=== PATIENT | female | born 1995 | race Caucasian/White ===

== ENCOUNTER → 2017-10-27 09:15 | Outpatient (CLI) | payer OTHER, SELFPAY ==
--- NOTE | 2017-10-27 09:27 | MRI_ITS ---
STUDY: MRI BRAIN WITHOUT CONTRAST REASON FOR EXAM: Female, 22 years old. Pineal cyst TECHNIQUE: Standardized multiplanar fat and water weighted pulse sequences were obtained. COMPARISON: March 2016 FINDINGS: Normal size of the ventricles and extra-axial spaces for the patient's age. Normal white matter tracts of the supratentorial brain. Normal bilateral basal ganglia. Normal thalami. There is no extra-axial fluid accumulation. Normal flow voids within the major intracranial circulation suggesting patency by spin echo criteria. Normal sella turcica, pituitary gland, infundibular stalk, optic chiasm and hypothalamus. Normal tectal plate. There is a small nonobstructing pineal cyst measuring approximately 7 to 8 mm in size not changed since previous study Normal midbrain, red and medulla. Normal cerebellum. Normal basal cisterns. Normal bilateral temporal bones. Normal bilateral internal auditory canals. No demonstrated orbital abnormality, within the constraints of a routine brain study. Normal visualized paranasal sinuses. Normal calvarium and skull base. Normal visualized soft tissue structures. Normal visualized upper cervical spine. MRI/Brain without Contrast IMPRESSION: Stable appearance to pineal cyst which is of no clinical significance. Otherwise normal unenhanced MRI of the brain Electronically Signed: Hunter Terrazas MD at 18:43 EDT , Service support ,
== END ==
DX: E34.8 Other specified endocrine disorders (principal)
CPT/HCPCS: 70551

== ENCOUNTER → 2018-01-19 09:40 | Outpatient (CLI) | payer OTHER, SELFPAY ==
[2018-01-19 09:44] VITALS: BMI 32.9
[2018-01-24 10:05] LABS: HPV Reflexed? NOT INDICATED
--- OUTSIDE RECORDS SUMMARY | 2018-03-07 23:48 | XMS RPT_ITS ---
:1995 Author Organization OHIP Care Team Providers Name Role Phone April Zhang Attending Unavailable Jamari Maria Referring Unavailable April Zhang Attending Unavailable April Zhang Referring Unavailable Violette Coto Primary Care Unavailable Violette Coto Attending Unavailable Violette Coto Referring Unavailable Violette Coto Primary Care Unavailable PROBLEMS PROBLEMS DATE TYPE CONDITION / CODE ATTENDING STATUS SOURCE 01/20/2018 Unknown Z12.4 - Encounter Johanny Zhang [place] for screening for [facility] malignant neoplasm [facility] of cervix / Repository Z12.4(ICD-10) 01/19/2018 Unknown Z01.419 - Encounter Johanny Zhang [place] for gynecological [facility] (general) (routine) Repository without abnormal findings / Z01.419(ICD-10) 11/01/2017 Unknown E34.8 - Other Violette Coto Active Hollie specified endocrine [facility] disorders / Hospital E34.8(ICD-10) Repository PROCEDURES PROCEDURES No Procedure Records FoundRESULTS RESULTS 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 Is patient in pain?: No Allergies ibuprofen Adverse Reaction (Mild, Verified 01/19/18 09:46) Vomiting Medications citalopram 40 mg tablet 40 mg PO DAILY #30 tab 01/19/18 [Rx Confirmed 01/19/18] norgestimate 0.25 mg-ethinyl estradiol 35 mcg tablet 1 tab PO QDAY #28 tab 01/19/18 [Rx Confirmed 01/19/18] Is last menstrual period known: Yes Last Menstral Period: 01/02/18 Post menopausal: No Patient : No : No PFSH Medical History Anxiety (Acute) Surgical History Numerous skin moles (Acute) [place] teeth extracted (Acute) Family History Grandfather Myocardial infarction Grandmother Breast cancer Social History number of children: 0 current occupational status: employed current occupation: [employer], [place] Smoking Status: Never smoker alcohol intake: current alcohol intake frequency: holidays/special occasions only substance use type: marijuana seatbelt use: always do you feel safe at home: Yes Pregancy History 0 Elective abortions Hx Para Spontaneous abortions HPI ANNUAL: Details: ILSA RUIZ is a 22 year old who presents for annual exam. 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 Last PAP: never Female Reproductive History Last Menstral Period: 01/02/18 Cycle Length: 21-35 Bleeding Duration: 5 Control Method: ocp Questions: Metorrhagia: No, Sexually active: Yes (not present), Dyspareunia: No, PCB: No ROS Const Constitutional: Reports as per HPI; denies poor appetite, fatigue, increased appetite, weight gain or weight loss Cardio Card: Denies chest pain Resp Resp: Denies dyspnea or cough GI GI: Reports as per HPI; denies bloating, abdominal pain, constipation, vomiting or nausea : Reports as per HPI and other; denies blood in urine, vaginal odor, vaginal itching, vaginal dryness, vaginal discharge, urinary urgency, urinary incontinence, urinary frequency, pelvic pain, painful urination, difficulty urinating, prolapse symptoms or nipple discharge Skin Skin/Breast: Reports breast lump (chronic right side); denies breast pain, breast skin changes, nipple discharge or changing lesions Exam Const General: cooperative, healthy appearing, comfortable, no acute distress, well developed, well groomed HENIA Head: normal to inspection, normocephalic Ears: hearing grossly normal bilaterally, external ears normal Nose: external nose normal Face and sinus: normal facial exam Neck Neck: normal visual inspection, full ROM, no lymphadenopathy Thyroid: thyroid normal Chest Chest palpation AND inspection: normal inspection of the chest Breast inspection: normal inspection of the breasts, normal inspection of the axillae Breast palpation: normal palpation of the breasts, normal palpation of the axillae, no axillary lymphadenopathy Resp Effort AND Inspection: normal respiratory effort GI Inspection: normal to inspection, non-distended Palpation: no guarding, soft, no hepatosplenomegaly General: bladder normal to palpation External Female Exam: normal external appearance, normal appearance of the urethra, no lesions Urethra: normal appearance of the urethra, normal palpation Speculum Exam - Vagina: normal appearance of the vagina, normal vaginal discharge Speculum Exam - Cervix: normal appearance of the cervix, no cervical discharge, no lesions, nontender Bimanual Exam- Vagina AND Uterus: No cervical tenderness, normal bimanual exam, uterine size normal, bladder normal to palpation, uterine mobility normal, uterine consistency normal, uterus non-tender, no cervical motion tenderness Bimanual Exam- Adnexa, other: normal adnexae, no adnexal masses, adnexae non-tender Skin General: no rashes or lesions noted Neuro General: alert, moves all extremities, no focal motor deficits Extrem General: no pedal edema, normal to inspection Psych Appearance: grossly normal Mental Status: mental status grossly normal Affect: normal affect Speech and Movement: speech and movement normal Attitude: cooperative Assessment AND Plan Problems 1. Encounter for gynecological examination without abnormal finding Z01.419 Plan Cervical cancer screening: pap Breast cancer screening: clinical STD prevention and contraceptive options including their risks, benefits, and alternatives were reviewed with the patient and she chooses: ocp, declines std screening Encouraged maintenance of a healthy weight and active lifestyle and handout given. Calcium/vitamin D recommendations provided. Annual exam handout including recommendations for good health guidelines and basic screening information given. Problem list up to date, see problem list details for any additional plan information. follow up in one year for annual health maintenance exam or sooner if needed. Medications New: Coding Level of Care Code Off vis,new,prev 18-39yrs Diagnoses Encounter for gynecological examination without abnormal finding Z01.419 Gynecological examination findings: abnormal findings ABSENT 01/19/18 1024 <Electronically signed by April Zhang MD> Date April Zhang MD Cosigner Signature: Date (if applicable) CC: PAP I-G W/RFX Collected: 01/19/2018 Status: F Source: HOLLIE HRHPV-APTIMA 9:40 AM [facility] REPOSITORY Order Comment: CYTOLOGY INFORMATION: - CLINICAL INFORMATION: - DATE LMP/MENOPAUSE: - COLLECTION VIAL: Thin Prep Vial - MAKING DEPARTMENT PREPARER SOURCE: CERVICAL - COLLECTION TECHNIQUE: CX BROOM ONLY Specimen Comment: [id number] Specimen Comment: Source.............Cervix Specimen Comment: No. of containers..01 ThinPrep Vial TYPE CODE TESTS RESULT OUT OF RANGE REFERENCE UNITS LAB L7400.0800 . Normal DIAGN Comment Result Comment: NEGATIVE FOR INTRAEPITHELIAL LESION AND MALIGNANCY. LAB L7400.0900 . Normal ADEQ Comment Result Comment: Satisfactory for evaluation. Endocervical and/or squamous metaplastic cells (endocervical component) are present. LAB L7400.1400 . Normal PERFORM Comment Result Comment: Lita Giordano Conduit Installer LAB L7400.2575 . Normal TEST METHOD Comment Result Comment: This liquid based ThinPrep(R) pap test was screened with the use of an image guided system. LAB L7400.2600 . Normal . COMM LAB L7400.2700 . Normal PAPSMR Comment Result Comment: The Pap smear is a screening test designed to aid in the detection of premalignant and malignant conditions of the uterine cervix. It is not a diagnostic procedure and should not be used as the sole means of detecting cervical cancer. Both false-positive and false-negative reports do occur. LAB L7400.2800 . Normal HPV RFLX Comment Result Comment: The HPV DNA reflex criteria were not met with this specimen result therefore, no HPV testing was performed. Performed at: [facility] [employer] [id number] Parts Data Writer: Nicci Perez MD, Phone: [phone] Performed By: #### L7400.0353 #### [facility] (refer to report for specific site) refer to report for address and phone number CNOV Observed: 12/12/2017 Status: COMPLETED Source: ORANGE 12:30 PM [facility] REPOSITORY Office Visit ([place]) ILSA RUIZ ([id number]) 1995 F Date Time Provider Department 12/12/17 12:30 PM JONNY IRIZARRY) ROSALINDA During your visit today, we recorded the following information about you: Temperature Pulse Respiration Blood pressure 98.3 degrees 104/minute 18/minute 116/62 Weight Height 94.8 kg 1.702 m Jonny Irizarry APRN.CNP 12/12/2017 12:35 PM Signed Subjective Sore Throat Associated symptoms include congestion, coughing and headaches. Pertinent negatives include no abdominal pain, diarrhea, ear pain or vomiting. HPI Ilsa Ruiz is a 22 year old female who presents today for CC of sore throat, congestion, headache, and coughing This started last night She is also having fatigue She has tried sudafed ACTIVE PROBLEM LIST Mass of Right Breast BP 116/62 Pulse 104 Temp 36.8 ?C (98.3 ?F) Resp 18 Ht 170.2 cm (5' 7) Wt 94.8 kg (209 lb) SpO2 99% BMI 32.73 kg/m? ALLERGIES Allergen Reactions - Ibuprofen GI Upset Current Outpatient Prescriptions: citalopram hydrobromide (CELEXA) 10 mg tablet Take 10 mg by mouth once daily. Disp: Rfl: Norgestimate-Ethinyl Estradiol (TRI-SPRINTEC) 0.18/0.215/0.25 mg-35 mcg (28) Tab Take by mouth. Disp: Rfl: PEDIATRIC MULTIVIT COMB. NO.49 (FLINTSTONES GUMMIES ORAL) Take by mouth. Disp: Rfl: MAGNESIUM CHLORIDE (MAG 64 ORAL) Take by mouth. NOT TAKING Disp: Rfl: CALCIUM CARBONATE/VITAMIN D3 (VITAMIN D-3 ORAL) Take by mouth. Disp: Rfl: No current facility-administered medications for this visit. Review of Systems Constitutional: Negative for chills, diaphoresis, fever and malaise/fatigue. HENT: Positive for congestion and sore throat. Negative for ear pain. Respiratory: Positive for cough. Negative for wheezing. Gastrointestinal: Negative for abdominal pain, diarrhea, nausea and vomiting. Musculoskeletal: Negative for joint pain and myalgias. Skin: Negative for rash. Neurological: Positive for headaches. Negative for weakness. Objective Physical Exam Constitutional: She is oriented to person, place, and time and well-developed, well-nourished, and in no distress. No distress. HENT: Head: Normocephalic and atraumatic. Right Ear: Tympanic membrane and ear canal normal. Left Ear: Tympanic membrane and ear canal normal. Nose: Rhinorrhea (clear) present. No mucosal edema. Right sinus exhibits no maxillary sinus tenderness and no frontal sinus tenderness. Left sinus exhibits no maxillary sinus tenderness and no frontal sinus tenderness. Mouth/Throat: Uvula is midline and mucous membranes are normal. Posterior oropharyngeal erythema present. No oropharyngeal exudate. Eyes: Pupils are equal, round, and reactive to light. Conjunctivae and EOM are normal. Right eye exhibits no discharge. Left eye exhibits no discharge. Neck: Normal range of motion. Neck supple. No thyromegaly present. Cardiovascular: Normal rate, regular rhythm and normal heart sounds. Pulmonary/Chest: Effort normal and breath sounds normal. No respiratory distress. She has no wheezes. She has no rales. Lymphadenopathy: She has no cervical adenopathy. Neurological: She is alert and oriented to person, place, and time. Gait normal. GCS score is 15. Skin: Skin is warm and dry. She is not diaphoretic. Psychiatric: Affect and judgment normal. ASSESSMENT/PLAN: 1. Sore throat - ICD9: 462, ICD10: J02.9 (primary diagnosis) - Rapid Strep negative in the office today and Throat culture pending - The patient should follow up in one week if symptoms persist or worsen - RAPID STREP TEST B/O - GROUP A STREPTOCOCCUS BY PCR 2. Viral illness - ICD9: 079.99, ICD10: B34.9 - Discussed viral etiology and rationale for treatment. - Symptomatic treatment with prn analgesia - Supportive care with fluids and rest - Follow up in one week if symptoms persist or sooner if worsening of symptoms 3. Cough - ICD9: 786.2, ICD10: R0 - BENZONATATE 100 MG CAPSULE 4. Nasal congestion - ICD9: 478.19, ICD10: R09.81 - FLUTICASONE 50 MCG/ACTUATION NASAL SPRAY,SUSPENSION 5. Nasal drainage - ICD9: 478.19, ICD10: J34.89 - LORATADINE 10 MG TABLET Jonny Irizarry APRN.ERICA Irizarry APRN.CNP 12/12/2017 12:32 PM Signed ASSESSMENT/PLAN: 1. Sore throat - ICD9: 462, ICD10: J02.9 (primary diagnosis) - Rapid Strep negative in the office today and Throat culture pending - The patient should follow up in one week if symptoms persist or worsen - RAPID STREP TEST B/O - GROUP A STREPTOCOCCUS BY PCR 2. Viral illness - ICD9: 079.99, ICD10: B34.9 - Discussed viral etiology and rationale for treatment. - Symptomatic treatment with prn analgesia - Supportive care with fluids and rest - Follow up in one week if symptoms persist or sooner if worsening of symptoms 3. Cough - ICD9: 786.2, ICD10: R0 - BENZONATATE 100 MG CAPSULE 4. Nasal congestion - ICD9: 478.19, ICD10: R09.81 - FLUTICASONE 50 MCG/ACTUATION NASAL SPRAY,SUSPENSION 5. Nasal drainage - ICD9: 478.19, ICD10: J34.89 - LORATADINE 10 MG TABLET Referring Provider: SELF [200] Allergies As of Date: 12/12/2017 Noted Allergy Reaction IBUPROFEN 07/11/2012 8 - GI Upset Date Reviewed: 12/12/2017 Reviewed by: Jonny Sanchez ([facility]) Edie - Fully Assessed Reason for Visit: Sore Throat [200] Primary Visit Diagnosis:Sore throat [J02.9] Other Visit Diagnoses:Viral illness [B34.9] Cough [R05] Nasal congestion [R09.81] Nasal drainage [J34.89] Order(s):RAPID STREP TEST B/O [1931240] Order #: [id number] GROUP A STREPTOCOCCUS BY PCR [SQGASPCR] Order #: [id number] benzonatate (TESSALON PERLES) 100 mg capsuleTake 1 capsule by mouth three times daily as needed for up to 7 days.Disp: 21 capsuleRfl: 0 fluticasone (FLONASE) 50 mcg/actuation nasal sprayUse 1 [place] in each nostril once daily.Disp: 1 BottleRfl: 0 loratadine (CLARITIN) 10 mg tabletTake 1 tablet by mouth once daily.Disp: 30 tabletRfl: 0 Prescriptions as of 12/12/2017 Sig: CITALOPRAM 10 MG TABLET Take 10 mg by mouth once selvin* NORGESTIMATE-ETHINYL ESTRADIO* Take by mouth. FLINTSTONES GUMMIES ORAL Take by mouth. BENZONATATE 100 MG CAPSULE Take 1 capsule by mouth three* FLUTICASONE 50 MCG/ACTUATION * Use 1 [place] in each nostril o* LORATADINE 10 MG TABLET Take 1 tablet by mouth once d* MAG 64 ORAL Take by mouth. NOT TAKING VITAMIN D-3 ORAL Take by mouth. Problem List As Of Date 12/12/2017 Noted Resolved Mass of right breast [N63.10] INVALID FOR* Other instructions from your clinician: ASSESSMENT/PLAN: 1. Sore throat - ICD9: 462, ICD10: J02.9 (primary diagnosis) - Rapid Strep negative in the office today and Throat culture pending - The patient should follow up in one week if symptoms persist or worsen - RAPID STREP TEST B/O - GROUP A STREPTOCOCCUS BY PCR 2. Viral illness - ICD9: 079.99, ICD10: B34.9 - Discussed viral etiology and rationale for treatment. - Symptomatic treatment with prn analgesia - Supportive care with fluids and rest - Follow up in one week if symptoms persist or sooner if worsening of symptoms 3. Cough - ICD9: 786.2, ICD10: R0 - BENZONATATE 100 MG CAPSULE 4. Nasal congestion - ICD9: 478.19, ICD10: R09.81 - FLUTICASONE 50 MCG/ACTUATION NASAL SPRAY,SUSPENSION 5. Nasal drainage - ICD9: 478.19, ICD10: J34.89 - LORATADINE 10 MG TABLET Prescriptions ordered this encounter Disp Refills Start End BENZONATATE 100 MG CAPSULE 21 c* 0 12/12/2017 12/19/2017 Route: ORAL Sig: Take 1 capsule by mouth three times daily as needed for up to 7 days. FLUTICASONE 50 MCG/ACTUATION NASAL S* 1 Phil* 0 12/12/2017 01/11/2018 Route: EACH NOSTRIL Sig: Use 1 [place] in each nostril once daily. LORATADINE 10 MG TABLET 30 t* 0 12/12/2017 01/11/2018 Route: ORAL Sig: Take 1 tablet by mouth once daily. Medications Discontinued During This Encounter methylPREDNISolone (MEDROL DOSE-PACK* 1 Pa* 0 10/30/2017 12/12/2017 Sig: As Instructed per package Patient not taking: Reported on 12/12/2017 Disc: Course of therapy completed benzonatate (TESSALON PERLE) 100 mg * 30 c* 0 05/10/2017 12/12/2017 Route: ORAL Sig: Take 2 capsules by mouth three times daily as needed. Patient not taking: Reported on 12/12/2017 Disc: Course of therapy completed fluticasone (FLONASE) 50 mcg/actuati* 1 Phil* 0 05/10/2017 12/12/2017 Route: EACH NOSTRIL Sig: Use 2 Sprays in each nostril once daily. Patient not taking: Reported on 12/12/2017 Disc: Course of therapy completed Pseudoephedrine HCl (SUDAFED 12 HOUR* 20 t* 0 12/08/2016 12/12/2017 Route: ORAL Sig: Take 1 tablet by mouth every 12 hours as needed. Patient not taking: Reported on 12/12/2017 Disc: Course of therapy completed Letter Text Jonny Irizarry APRN.CNP [facility] [address] [place] [address] Dept: [phone] 12/12/2017 Ilsa Ruiz [address] [place] [id number] To Whom it May Concern: This is to certify that Ilsa Ruiz was seen at our office for medical care. Ilsa may return to work on 12/14/17. If you have any questions please feel free to call. Sincerely: Jonny Irizarry APRN.CNP Encounter Status:Closed by JONNY IRIZARRY on 12/12/17 PROGRESS Observed: 12/12/2017 Status: COMPLETED Source: ORANGE 12:24 PM [facility] REPOSIT[facility] HNO ID: [id number] Author: Jonny Irizarry Service: (none) Author Type: Nurse Practitioner Type: Progress Notes Filed: 12/12/2017 12:35 PM Note Text: Subjective Sore Throat Associated symptoms include congestion, coughing and headaches. Pertinent negatives include no abdominal pain, diarrhea, ear pain or vomiting. HPI Ilsa Ruiz is a 22 year old female who presents today for CC of sore throat, congestion, headache, and coughing This started last night She is also having fatigue She has tried sudafed ACTIVE PROBLEM LIST Mass of Right Breast BP 116/62 Pulse 104 Temp 36.8 ?C (98.3 ?F) Resp 18 Ht 170.2 cm (5' 7) Wt 94.8 kg (209 lb) SpO2 99% BMI 32.73 kg/m? ALLERGIES Allergen Reactions - Ibuprofen GI Upset Current Outpatient Prescriptions: citalopram hydrobromide (CELEXA) 10 mg tablet Take 10 mg by mouth once daily. Disp: Rfl: Norgestimate-Ethinyl Estradiol (TRI-SPRINTEC) 0.18/0.215/0.25 mg-35 mcg (28) Tab Take by mouth. Disp: Rfl: PEDIATRIC MULTIVIT COMB. NO.49 (FLINTSTONES GUMMIES ORAL) Take by mouth. Disp: Rfl: MAGNESIUM CHLORIDE (MAG 64 ORAL) Take by mouth. NOT TAKING Disp: Rfl: CALCIUM CARBONATE/VITAMIN D3 (VITAMIN D-3 ORAL) Take by mouth. Disp: Rfl: No current facility-administered medications for this visit. Review of Systems Constitutional: Negative for chills, diaphoresis, fever and malaise/fatigue. HENT: Positive for congestion and sore throat. Negative for ear pain. Respiratory: Positive for cough. Negative for wheezing. Gastrointestinal: Negative for abdominal pain, diarrhea, nausea and vomiting. Musculoskeletal: Negative for joint pain and myalgias. Skin: Negative for rash. Neurological: Positive for headaches. Negative for weakness. Objective Physical Exam Constitutional: She is oriented to person, place, and time and well-developed, well-nourished, and in no distress. No distress. HENT: Head: Normocephalic and atraumatic. Right Ear: Tympanic membrane and ear canal normal. Left Ear: Tympanic membrane and ear canal normal. Nose: Rhinorrhea (clear) present. No mucosal edema. Right sinus exhibits no maxillary sinus tenderness and no frontal sinus tenderness. Left sinus exhibits no maxillary sinus tenderness and no frontal sinus tenderness. Mouth/Throat: Uvula is midline and mucous membranes are normal. Posterior oropharyngeal erythema present. No oropharyngeal exudate. Eyes: Pupils are equal, round, and reactive to light. Conjunctivae and EOM are normal. Right eye exhibits no discharge. Left eye exhibits no discharge. Neck: Normal range of motion. Neck supple. No thyromegaly present. Cardiovascular: Normal rate, regular rhythm and normal heart sounds. Pulmonary/Chest: Effort normal and breath sounds normal. No respiratory distress. She has no wheezes. She has no rales. Lymphadenopathy: She has no cervical adenopathy. Neurological: She is alert and oriented to person, place, and time. Gait normal. GCS score is 15. Skin: Skin is warm and dry. She is not diaphoretic. Psychiatric: Affect and judgment normal. ASSESSMENT/PLAN: 1. Sore throat - ICD9: 462, ICD10: J02.9 (primary diagnosis) - Rapid Strep negative in the office today and Throat culture pending - The patient should follow up in one week if symptoms persist or worsen - RAPID STREP TEST B/O - GROUP A STREPTOCOCCUS BY PCR 2. Viral illness - ICD9: 079.99, ICD10: B34.9 - Discussed viral etiology and rationale for treatment. - Symptomatic treatment with prn analgesia - Supportive care with fluids and rest - Follow up in one week if symptoms persist or sooner if worsening of symptoms 3. Cough - ICD9: 786.2, ICD10: R0 - BENZONATATE 100 MG CAPSULE 4. Nasal congestion - ICD9: 478.19, ICD10: R09.81 - FLUTICASONE 50 MCG/ACTUATION NASAL SPRAY,SUSPENSION 5. Nasal drainage - ICD9: 478.19, ICD10: J34.89 - LORATADINE 10 MG TABLET Jonny Irizarry APRN.REPORTING DEVELOPER GROUP A STREP BY Collected: 12/12/2017 Status: F Source: ORANGE PCR 1:14 AM [facility] REPOSITORY TYPE CODE TESTS RESULT OUT OF REFERENCE UNITS RANGE LAB GASSRC Throat Swab GAS Specimen Source LAB PCRGAS Negative for Group A Strep Group A PCR Streptococcus by PCR. Result Comment: This test was developed and its performance characteristics determined by [facility] [place] ([facility]). It has not been cleared or approved by the FDA. -[facility] is regulated under CLIA as qualified to perform high-complexity testing. This test is used for clinical purposes. It should not be regarded as inv estigational or for research. Performed By: #### GASPCR #### [facility] [address], [place] [address] PROGRESS Observed: 10/30/2017 Status: COMPLETED Source: ORANGE 2:47 PM [facility] REPOSITORY HNO ID: [id number] Author: Jonny Sanchez (Erica) Edie Service: (none) Author Type: Nurse Practitioner Type: Progress Notes Filed: 10/30/2017 3:18 PM Note Text: Subjective Back Pain Pertinent negatives include no fever, no abdominal pain, no dysuria, no tingling and no weakness. HPI Ilsa Ruiz is a 22 year old female who presents today for CC of bilateral back pain, but worse on the right side. 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 She reports the pain to be at a 7 with moving and a 2/3 when sitting. She has been using the heating pad only. She has not used NSAIDS because they do not agree with her stomach ACTIVE PROBLEM LIST Mass of Right Breast BP 122/72 Pulse 97 Temp 37.5 ?C (99.5 ?F) (Tympanic) Resp 12 Wt 91.8 kg (202 lb 6.4 oz) LMP 10/16/2017 (Exact Date) BMI 32.67 kg/m? ALLERGIES Allergen Reactions - Ibuprofen GI Upset Current Outpatient Prescriptions: fluticasone (FLONASE) 50 mcg/actuation nasal spray Use 2 Sprays in each nostril once daily. Disp: 1 Bottle Rfl: 0 citalopram hydrobromide (CELEXA) 10 mg tablet Take 10 mg by mouth once daily. Disp: Rfl: Norgestimate-Ethinyl Estradiol (TRI-SPRINTEC) 0.18/0.215/0.25 mg-35 mcg (28) Tab Take by mouth. Disp: Rfl: PEDIATRIC MULTIVIT COMB. NO.49 (FLINTSTONES GUMMIES ORAL) Take by mouth. Disp: Rfl: methylPREDNISolone (MEDROL DOSE-PACK) 4 mg Dose-Pack As Instructed per package Disp: 1 Package Rfl: 0 cyclobenzaprine (FLEXERIL) 10 mg tablet Take 1 tablet by mouth three times daily as needed for Muscle Spasm or Pain for up to 7 days. Disp: 21 tablet Rfl: 0 benzonatate (TESSALON PERLE) 100 mg capsule Take 2 capsules by mouth three times daily as needed. Disp: 30 capsule Rfl: 0 Pseudoephedrine HCl (SUDAFED 12 HOUR) 120 mg TbER Take 1 tablet by mouth every 12 hours as needed. Disp: 20 tablet Rfl: 0 MAGNESIUM CHLORIDE (MAG 64 ORAL) Take by mouth. NOT TAKING Disp: Rfl: CALCIUM CARBONATE/VITAMIN D3 (VITAMIN D-3 ORAL) Take by mouth. Disp: Rfl: No current facility-administered medications for this visit. Review of Systems Constitutional: Negative for chills, diaphoresis, fever and malaise/fatigue. Gastrointestinal: Negative for abdominal pain, diarrhea, nausea and vomiting. Genitourinary: Negative for dysuria, flank pain, frequency, hematuria and urgency. Musculoskeletal: Positive for back pain. Negative for joint pain and myalgias. Neurological: Negative for tingling and weakness. Objective Physical Exam Constitutional: She is oriented to person, place, and time and well-developed, well-nourished, and in no distress. No distress. HENT: Head: Normocephalic and atraumatic. Eyes: Pupils are equal, round, and reactive to light. Conjunctivae and EOM are normal. Pulmonary/Chest: Effort normal. No respiratory distress. Neurological: She is alert and oriented to person, place, and time. Gait normal. GCS score is 15. Skin: Skin is warm and dry. No rash noted. She is not diaphoretic. Psychiatric: Affect and judgment normal. Patient displayed signs of discomfort with getting out of a chair and walking. Paraspinal tenderness noted to the bilateral lumbar sacral region There was no muscle spasms felt There is no spinal tenderness with palpation ROM was limited due to pain with forward flexion, extension, bilateral lateral bend and rotation. Neurovascular status is intact to bilateral lower extremities. Patellar reflexes are +2 bilaterally. Leg strength 5/5. Pedal pulses are palpable and strong. Normal temp. Normal sensation. Bilateral leg lifts are positive for radiculopathy. Able to ambulate without evidence of a foot drop or ataxic gait. Able to ambulate on toes and heels. Normal flexion, dorsiflexion, abduction and adduction. Denies bowel or bladder dysfunction, saddle anesthesia, distal paresthesias or weakness in the lower extremities. ASSESSMENT/PLAN: 1. Acute bilateral low back pain with bilateral sciatica - ICD9: 724.2, 724.3, ICD10: M54.42, M54.41 Sciatica - Warm moist heat for 20 min three times a day - Medrol dose pack - Muscle relaxant- see orders - METHYLPREDNISOLONE 4 MG TABLETS IN A DOSE PACK - CYCLOBENZAPRINE 10 MG TABLET * Do not NSAIDs during this 5 day course (ibuprofen, naproxen, Motrin, Aleve, Advil) Tylenol only during prednisone use * Follow up with primary care provider if no improvement with treatment, mom works for [employer] Jonny Irizarry APRN.ERICA ETIENNE Observed: 10/30/2017 Status: COMPLETED Source: [place] 2:30 PM [facility] REPOSITORY Office Visit ([place]) ILSA RUIZ ([id number]) 1995 F Date Time Provider Department 10/30/17 2:30 PM JONNY IRIZARRY (ERICA) ROSALINDA During your visit today, we recorded the following information about you: Temperature Pulse Respiration Blood pressure 99.5 degrees 97/minute 12/minute 122/72 Weight Last Period 91.8 kg 10/16/17 Jonny Irizarry APRN.CNP 10/30/2017 3:18 PM Signed Subjective Back Pain Pertinent negatives include no fever, no abdominal pain, no dysuria, no tingling and no weakness. HPI Ilsa Ruiz is a 22 year old female who presents today for CC of bilateral back pain, but worse on the right side. 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 She reports the pain to be at a 7 with moving and a 2/3 when sitting. She has been using the heating pad only. She has not used NSAIDS because they do not agree with her stomach ACTIVE PROBLEM LIST Mass of Right Breast BP 122/72 Pulse 97 Temp 37.5 ?C (99.5 ?F) (Tympanic) Resp 12 Wt 91.8 kg (202 lb 6.4 oz) LMP 10/16/2017 (Exact Date) BMI 32.67 kg/m? ALLERGIES Allergen Reactions - Ibuprofen GI Upset Current Outpatient Prescriptions: fluticasone (FLONASE) 50 mcg/actuation nasal spray Use 2 Sprays in each nostril once daily. Disp: 1 Bottle Rfl: 0 citalopram hydrobromide (CELEXA) 10 mg tablet Take 10 mg by mouth once daily. Disp: Rfl: Norgestimate-Ethinyl Estradiol (TRI-SPRINTEC) 0.18/0.215/0.25 mg-35 mcg (28) Tab Take by mouth. Disp: Rfl: PEDIATRIC MULTIVIT COMB. NO.49 (FLINTSTONES GUMMIES ORAL) Take by mouth. Disp: Rfl: methylPREDNISolone (MEDROL DOSE-PACK) 4 mg Dose-Pack As Instructed per package Disp: 1 Package Rfl: 0 cyclobenzaprine (FLEXERIL) 10 mg tablet Take 1 tablet by mouth three times daily as needed for Muscle Spasm or Pain for up to 7 days. Disp: 21 tablet Rfl: 0 benzonatate (TESSALON PERLE) 100 mg capsule Take 2 capsules by mouth three times daily as needed. Disp: 30 capsule Rfl: 0 Pseudoephedrine HCl (SUDAFED 12 HOUR) 120 mg TbER Take 1 tablet by mouth every 12 hours as needed. Disp: 20 tablet Rfl: 0 MAGNESIUM CHLORIDE (MAG 64 ORAL) Take by mouth. NOT TAKING Disp: Rfl: CALCIUM CARBONATE/VITAMIN D3 (VITAMIN D-3 ORAL) Take by mouth. Disp: Rfl: No current facility-administered medications for this visit. Review of Systems Constitutional: Negative for chills, diaphoresis, fever and malaise/fatigue. Gastrointestinal: Negative for abdominal pain, diarrhea, nausea and vomiting. Genitourinary: Negative for dysuria, flank pain, frequency, hematuria and urgency. Musculoskeletal: Positive for back pain. Negative for joint pain and myalgias. Neurological: Negative for tingling and weakness. Objective Physical Exam Constitutional: She is oriented to person, place, and time and well-developed, well-nourished, and in no distress. No distress. HENT: Head: Normocephalic and atraumatic. Eyes: Pupils are equal, round, and reactive to light. Conjunctivae and EOM are normal. Pulmonary/Chest: Effort normal. No respiratory distress. Neurological: She is alert and oriented to person, place, and time. Gait normal. GCS score is 15. Skin: Skin is warm and dry. No rash noted. She is not diaphoretic. Psychiatric: Affect and judgment normal. Patient displayed signs of discomfort with getting out of a chair and walking. Paraspinal tenderness noted to the bilateral lumbar sacral region There was no muscle spasms felt There is no spinal tenderness with palpation ROM was limited due to pain with forward flexion, extension, bilateral lateral bend and rotation. Neurovascular status is intact to bilateral lower extremities. Patellar reflexes are +2 bilaterally. Leg strength 5/5. Pedal pulses are palpable and strong. Normal temp. Normal sensation. Bilateral leg lifts are positive for radiculopathy. Able to ambulate without evidence of a foot drop or ataxic gait. Able to ambulate on toes and heels. Normal flexion, dorsiflexion, abduction and adduction. Denies bowel or bladder dysfunction, saddle anesthesia, distal paresthesias or weakness in the lower extremities. ASSESSMENT/PLAN: 1. Acute bilateral low back pain with bilateral sciatica - ICD9: 724.2, 724.3, ICD10: M54.42, M54.41 Sciatica - Warm moist heat for 20 min three times a day - Medrol dose pack - Muscle relaxant- see orders - METHYLPREDNISOLONE 4 MG TABLETS IN A DOSE PACK - CYCLOBENZAPRINE 10 MG TABLET * Do not NSAIDs during this 5 day course (ibuprofen, naproxen, Motrin, Aleve, Advil) Tylenol only during prednisone use * Follow up with primary care provider if no improvement with treatment, mom works for [employer] GIRISH Tuttle APRN.CNP 10/30/2017 2:48 PM Signed ASSESSMENT/PLAN: 1. Acute bilateral low back pain with bilateral sciatica - ICD9: 724.2, 724.3, ICD10: M54.42, M54.41 Sciatica - Warm moist heat for 20 min three times a day - Medrol dose pack - Muscle relaxant- see orders - METHYLPREDNISOLONE 4 MG TABLETS IN A DOSE PACK - CYCLOBENZAPRINE 10 MG TABLET * Do not NSAIDs during this 5 day course (ibuprofen, naproxen, Motrin, Aleve, Advil) Tylenol only during prednisone use * Follow up with primary care provider if no improvement with treatment, mom works for [employer] Referring Provider: SELF [200] Allergies As of Date: 10/30/2017 Noted Allergy Reaction IBUPROFEN 07/11/2012 8 - GI Upset Date Reviewed: 10/30/2017 Reviewed by: Jonny Irizarry - Fully Assessed Reason for Visit: Back Pain [12] Cmt: x1 day Reason For Visit History Recorded Primary Visit Diagnosis:Acute bilateral low back pain with bilateral sciatica [M54.42, M54.41] Order(s):methylPREDNISolone (MEDROL DOSE-PACK) 4 mg Dose-PackAs Instructed per packageDisp: 1 PackageRfl: 0 cyclobenzaprine (FLEXERIL) 10 mg tabletTake 1 tablet by mouth three times daily as needed for Muscle Spasm or Pain for up to 7 days.Disp: 21 tabletRfl: 0 Prescriptions as of 10/30/2017 Sig: FLUTICASONE 50 MCG/ACTUATION * Use 2 Sprays in each nostril * CITALOPRAM 10 MG TABLET Take 10 mg by mouth once selvin* NORGESTIMATE-ETHINYL ESTRADIO* Take by mouth. FLINTSTONES GUMMIES ORAL Take by mouth. METHYLPREDNISOLONE 4 MG TABLE* As Instructed per package CYCLOBENZAPRINE 10 MG TABLET Take 1 tablet by mouth three * BENZONATATE 100 MG CAPSULE Take 2 capsules by mouth thre* PSEUDOEPHEDRINE ER 120 MG TAB* Take 1 tablet by mouth every * MAG 64 ORAL Take by mouth. NOT TAKING VITAMIN D-3 ORAL Take by mouth. Medication notes this encounter BENZONATATE 100 MG CAPSULE >> Cassia Somers Ma 10/30/2017 2:28 PM >> CASSIA SOMERS MA Oct 30, 2017 2:28 PM Not takking PSEUDOEPHEDRINE ER 120 MG TABLET,EXTENDED RELEASE >> Cassia Somers Ma 10/30/2017 2:29 PM >> CASSIA SOMERS MA Oct 30, 2017 2:29 PM Not taking MAG 64 ORAL >> Cassia Somers Ma 10/30/2017 2:29 PM >> CASSIA SOMERS MA Oct 30, 2017 2:29 PM Not taking Problem List As Of Date 10/30/2017 Noted Resolved Mass of right breast [N63.10] INVALID FOR* Other instructions from your clinician: ASSESSMENT/PLAN: 1. Acute bilateral low back pain with bilateral sciatica - ICD9: 724.2, 724.3, ICD10: M54.42, M54.41 Sciatica - Warm moist heat for 20 min three times a day - Medrol dose pack - Muscle relaxant- see orders - METHYLPREDNISOLONE 4 MG TABLETS IN A DOSE PACK - CYCLOBENZAPRINE 10 MG TABLET * Do not NSAIDs during this 5 day course (ibuprofen, naproxen, Motrin, Aleve, Advil) Tylenol only during prednisone use * Follow up with primary care provider if no improvement with treatment, mom works for [employer] Prescriptions ordered this encounter Disp Refills Start End METHYLPREDNISOLONE 4 MG TABLETS IN A* 1 Pa* 0 10/30/2017 Sig: As Instructed per package CYCLOBENZAPRINE 10 MG TABLET 21 t* 0 10/30/2017 11/06/2017 Route: ORAL Sig: Take 1 tablet by mouth three times daily as needed for Muscle Spasm or Pain for up to 7 days. Letter Text Jonny Irizarry APRN.CNP [facility] [address] [place] [address] Dept: [phone] 10/30/2017 Ilsa Ruiz [address] [place] [id number] To Whom it May Concern: This is to certify that Ilsa Ruiz was seen at our office for medical care. Ilsa may return to work on 11/01/17. If you have any questions please feel free to call. Sincerely: Jonny Irizarry APRN.REPORTING DEVELOPER Encounter Status:Closed by JONNY IRIZARRY on 10/30/17 BRAIN WITHOUT Observed: 10/27/2017 Status: F Source: [facility] 9:27 AM [facility] REPOSITORY [facility] Imaging Services [address] [place] [id number] Brain without Contrast MR#: [id number] Acct: [id number] Name: ILSA RUIZ Rep #: [id number] : 1995 F 22 From: Hunter Terrazas MD PCP: Violette Coto DO Status: REG CLI Study: Brain without Contrast Date of Exam: 10/27/17 Exam# [id number] Ordering Dr: Violette Coto DO STUDY: MRI BRAIN WITHOUT CONTRAST REASON FOR EXAM: Female, 22 years old. Pineal cyst TECHNIQUE: Standardized multiplanar fat and water weighted pulse sequences were obtained. COMPARISON: March 2016 FINDINGS: Normal size of the ventricles and extra-axial spaces for the patient's age. Normal white matter tracts of the supratentorial brain. Normal bilateral basal ganglia. Normal thalami. There is no extra-axial fluid accumulation. Normal flow voids within the major intracranial circulation suggesting patency by spin echo criteria. Normal sella turcica, pituitary gland, infundibular stalk, optic chiasm and hypothalamus. Normal tectal plate. There is a small nonobstructing pineal cyst measuring approximately 7 to 8 mm in size not changed since previous study Normal midbrain, red and medulla. Normal cerebellum. Normal basal cisterns. Normal bilateral temporal bones. Normal bilateral internal auditory canals. No demonstrated orbital abnormality, within the constraints of a routine brain study. Normal visualized paranasal sinuses. Normal calvarium and skull base. Normal visualized soft tissue structures. Normal visualized upper cervical spine. MRI/Brain without Contrast IMPRESSION: Stable appearance to pineal cyst which is of no clinical significance. Otherwise normal unenhanced MRI of the brain Electronically Signed: Hunter Terrazas MD at 18:43 EDT , Service support , CC: Violette Coto DO Draughtsman: Signed CNOV Observed: 05/10/2017 Status: COMPLETED Source: [place] 7:30 PM [facility] REPOSITORY Office Visit (ROSALINDA) ILSA RUIZ ([id number]) 1995 F Date Time Provider Department 05/10/17 7:30 PM JUDIE CRUZ PA-C During your visit today, we recorded the following information about you: Temperature Pulse Blood pressure Weight 98.5 degrees 86/minute 125/73 92.1 kg Judie Cruz PA-C, PA 05/10/2017 7:35 PM Signed 05/10/2017 Patient presents with: Cough: cough X this morning SUBJECTIVE: This is a 22 year old that is here today for concern for a cough and sinus symptoms. The patient complains of acute sore throat 3 days ago- this resolved. Today she developed cough, hoarse voice, and congestion. No sinus pain. Denies fever, chills, sweats, or fatigue. Patient denies wheezing, shortness of breath, increased WOB, or chest pain. Asthma: as a young child Pneumonia: none Tobacco: none Pain on scale of 0-10 with 0 being no pain and 10 being greatest pain: 0 Nothing makes the symptoms better. Nothing makes them worse. Self-treatment:. sudafed The severity is mild and the symptoms are not improving. The patient did not have a similar problem in the last 3 months. The patient did not take any antibiotics in the last 3 months. Barriers to learning: none. Reviewed meds, OTCs, herbals or supplements. Reviewed allergies, medications, and past medical history.. PAST MEDICAL HISTORY Diagnosis Date - Anxiety ALLERGIES Ibuprofen MEDICATIONS Current Outpatient Prescriptions: Pseudoephedrine HCl (SUDAFED 12 HOUR) 120 mg TbER Take 1 tablet by mouth every 12 hours as needed. citalopram hydrobromide (CELEXA) 10 mg tablet Take 10 mg by mouth once daily. Norgestimate-Ethinyl Estradiol (TRI-SPRINTEC) 0.18/0.215/0.25 mg-35 mcg (28) Tab Take by mouth. PEDIATRIC MULTIVIT COMB. NO.49 (FLINTSTONES GUMMIES ORAL) Take by mouth. MAGNESIUM CHLORIDE (MAG 64 ORAL) Take by mouth. NOT TAKING CALCIUM CARBONATE/VITAMIN D3 (VITAMIN D-3 ORAL) Take by mouth. No current facility-administered medications for this visit. Medications and allergies reviewed by this provider. SOCIAL HISTORY Social History Marital status: Single Spouse name: Years of education: Number of children: Social History Main Topics Smoking status: Never Smoker Smokeless status: Never Used Alcohol use: No Drug use: No REVIEW OF SYSTEMS Review of Systems ROS: constitutional-neg, heent-sinus complaints, hoarse voice, heart-neg, respiratory-cough, skin-neg, lymph-neg, neuro-neg, - All systems neg except as noted above in HPI. OBJECTIVE: BP 125/73 (BP Site: Right Arm, BP Position: Sitting, BP Cuff Size: Regular Adult) Pulse 86 Temp 36.9 ?C (98.5 ?F) (Tympanic) Wt 92.1 kg (203 lb) SpO2 97% BMI 32.77 kg/m2. Vital signs reviewed by this provider. Physical Exam AAOx3, no acute distress, patient is pleasant, well groomed, dressed appropriately. +hoarse voice. No cough heard. General: WD, WN, NAD, alert. HEENT: No facial erythema or swelling. Eyes: PERRL. EOMI. No erythema or discharge. -Ears: TMs pearly cronin with light reflex, ear canals not red or swollen. -Nose-nasal mucosa pink and no discharge/polyps, nasal septum midline. -Throat: pharynx pink with no edema/mass/exudate/erythema, buccal mucosa pink and moist with no lesions. Head: no maxillary tenderness noted upon palpation. Neck: no masses or lymphadenopathy. Chest: CTA bilaterally with equal breath sounds; good air exchange throughout. No wheezing, rhonchi, or crackles; no retractions, tripoding, or nasal flaring noted. Heart: RRR, no murmur, rub, or gallop.. ASSESSMENT/PLAN: 1. Upper respiratory infection with cough and congestion - ICD9: 465.9, ICD10: J06.9 - BENZONATATE 100 MG CAPSULE - FLUTICASONE 50 MCG/ACTUATION NASAL SPRAY,SUSPENSION Encourage fluids, rest. Sudafed from behind the counter May start Claritin or Zyrtec OTC as directed- helps to dry up runny nose and post nasal drip. Tylenol and Motrin for pain and fever. If you have a fever rotate between the Tylenol and Motrin every 3 hours. Saline Nasil spray, Neti Pot, vaporizer, Vicks. Try Cepocol lozenges or Chloraseptic throat spray. Warm salt water gargles. Cough and deep breath- 10x/hr while awake. Call PCP if sx worsen or no better. If symptoms worsen, or new symptoms develop go to ER. If you have worsening of breathing or breathing changes- go to ER. If you have persistent fever unrelieved by Tylenol/Motrin- go to the ER. Follow up as needed. Barriers to learning: none. The patient verbalizes understanding and is in agreement with plan of care. AUGUSTUS Plaza PA-C, GRETCHEN 05/10/2017 7:29 PM Signed ASSESSMENT/PLAN: 1. Upper respiratory infection with cough and congestion - - BENZONATATE 100 MG CAPSULE - FLUTICASONE 50 MCG/ACTUATION NASAL SPRAY,SUSPENSION Encourage fluids, rest. Sudafed from behind the counter May start Claritin or Zyrtec OTC as directed- helps to dry up runny nose and post nasal drip. Tylenol and Motrin for pain and fever. If you have a fever rotate between the Tylenol and Motrin every 3 hours. Saline Nasil spray, Neti Pot, vaporizer, Vicks. Try Cepocol lozenges or Chloraseptic throat spray. Warm salt water gargles. Cough and deep breath- 10x/hr while awake. Call PCP if sx worsen or no better. If symptoms worsen, or new symptoms develop go to ER. If you have worsening of breathing or breathing changes- go to ER. If you have persistent fever unrelieved by Tylenol/Motrin- go to the ER. Follow up as needed. Barriers to learning: none. The patient verbalizes understanding and is in agreement with plan of care. Judie Cruz PA-C Referring Provider: SELF [200] Allergies As of Date: 05/10/2017 Noted Allergy Reaction IBUPROFEN 07/11/2012 8 - GI Upset Date Reviewed: 05/10/2017 Reviewed by: Angeles Domínguez Ma - Fully Assessed Reason for Visit: Cough [28] Cmt: cough X this morning Primary Visit Diagnosis:Upper respiratory infection with cough and congestion [J06.9] Order(s):benzonatate (TESSALON PERLE) 100 mg capsuleTake 2 capsules by mouth three times daily as needed.Disp: 30 capsuleRfl: 0 fluticasone (FLONASE) 50 mcg/actuation nasal sprayUse 2 Sprays in each nostril once daily.Disp: 1 BottleRfl: 0 Prescriptions as of 05/10/2017 Sig: PSEUDOEPHEDRINE ER 120 MG TAB* Take 1 tablet by mouth every * CITALOPRAM 10 MG TABLET Take 10 mg by mouth once selvin* NORGESTIMATE-ETHINYL ESTRADIO* Take by mouth. FLINTSTONES GUMMIES ORAL Take by mouth. BENZONATATE 100 MG CAPSULE Take 2 capsules by mouth thre* FLUTICASONE 50 MCG/ACTUATION * Use 2 Sprays in each nostril * MAG 64 ORAL Take by mouth. NOT TAKING VITAMIN D-3 ORAL Take by mouth. Problem List As Of Date 05/10/2017 Noted Resolved Mass of right breast [N63.10] INVALID FOR* Other instructions from your clinician: ASSESSMENT/PLAN: 1. Upper respiratory infection with cough and congestion - - BENZONATATE 100 MG CAPSULE - FLUTICASONE 50 MCG/ACTUATION NASAL SPRAY,SUSPENSION Encourage fluids, rest. Sudafed from behind the counter May start Claritin or Zyrtec OTC as directed- helps to dry up runny nose and post nasal drip. Tylenol and Motrin for pain and fever. If you have a fever rotate between the Tylenol and Motrin every 3 hours. Saline Nasil spray, Neti Pot, vaporizer, Vicks. Try Cepocol lozenges or Chloraseptic throat spray. Warm salt water gargles. Cough and deep breath- 10x/hr while awake. Call PCP if sx worsen or no better. If symptoms worsen, or new symptoms develop go to ER. If you have worsening of breathing or breathing changes- go to ER. If you have persistent fever unrelieved by Tylenol/Motrin- go to the ER. Follow up as needed. Barriers to learning: none. The patient verbalizes understanding and is in agreement with plan of care. Judie Cruz PA-C Prescriptions ordered this encounter Disp Refills Start End BENZONATATE 100 MG CAPSULE 30 c* 0 05/10/2017 Route: ORAL Sig: Take 2 capsules by mouth three times daily as needed. FLUTICASONE 50 MCG/ACTUATION NASAL S* 1 Phil* 0 05/10/2017 Route: EACH NOSTRIL Sig: Use 2 Sprays in each nostril once daily. Encounter Status:Closed by JUDIE CRUZ on 05/10/17 PROGRESS Observed: 05/10/2017 Status: COMPLETED Source: [place] 7:25 PM [facility] REPOSITORY [facility] ID: [id number] Author: Judie Ca) GRETCHEN Cruz Service: (none) Author Type: Physician Fountain Helper Type: Progress Notes Filed: 05/10/2017 7:35 PM Note Text: 05/10/2017 Patient presents with: Cough: cough X this morning SUBJECTIVE: This is a 22 year old that is here today for concern for a cough and sinus symptoms. The patient complains of acute sore throat 3 days ago- this resolved. Today she developed cough, hoarse voice, and congestion. No sinus pain. Denies fever, chills, sweats, or fatigue. Patient denies wheezing, shortness of breath, increased WOB, or chest pain. Asthma: as a young child Pneumonia: none Tobacco: none Pain on scale of 0-10 with 0 being no pain and 10 being greatest pain: 0 Nothing makes the symptoms better. Nothing makes them worse. Self-treatment:. sudafed The severity is mild and the symptoms are not improving. The patient did not have a similar problem in the last 3 months. The patient did not take any antibiotics in the last 3 months. Barriers to learning: none. Reviewed meds, OTCs, herbals or supplements. Reviewed allergies, medications, and past medical history.. PAST MEDICAL HISTORY Diagnosis Date - Anxiety ALLERGIES Ibuprofen MEDICATIONS Current Outpatient Prescriptions: Pseudoephedrine HCl (SUDAFED 12 HOUR) 120 mg TbER Take 1 tablet by mouth every 12 hours as needed. citalopram hydrobromide (CELEXA) 10 mg tablet Take 10 mg by mouth once daily. Norgestimate-Ethinyl Estradiol (TRI-SPRINTEC) 0.18/0.215/0.25 mg-35 mcg (28) Tab Take by mouth. PEDIATRIC MULTIVIT COMB. NO.49 (FLINTSTONES GUMMIES ORAL) Take by mouth. MAGNESIUM CHLORIDE (MAG 64 ORAL) Take by mouth. NOT TAKING CALCIUM CARBONATE/VITAMIN D3 (VITAMIN D-3 ORAL) Take by mouth. No current facility-administered medications for this visit. Medications and allergies reviewed by this provider. SOCIAL HISTORY Social History Marital status: Single Spouse name: Years of education: Number of children: Social History Main Topics Smoking status: Never Smoker Smokeless status: Never Used Alcohol use: No Drug use: No REVIEW OF SYSTEMS Review of Systems ROS: constitutional-neg, heent-sinus complaints, hoarse voice, heart-neg, respiratory-cough, skin-neg, lymph-neg, neuro-neg, - All systems neg except as noted above in HPI. OBJECTIVE: BP 125/73 (BP Site: Right Arm, BP Position: Sitting, BP Cuff Size: Regular Adult) Pulse 86 Temp 36.9 ?C (98.5 ?F) (Tympanic) Wt 92.1 kg (203 lb) SpO2 97% BMI 32.77 kg/m2. Vital signs reviewed by this provider. Physical Exam AAOx3, no acute distress, patient is pleasant, well groomed, dressed appropriately. +hoarse voice. No cough heard. General: WD, WN, NAD, alert. HEENT: No facial erythema or swelling. Eyes: PERRL. EOMI. No erythema or discharge. -Ears: TMs pearly cronin with light reflex, ear canals not red or swollen. -Nose-nasal mucosa pink and no discharge/polyps, nasal septum midline. -Throat: pharynx pink with no edema/mass/exudate/erythema, buccal mucosa pink and moist with no lesions. Head: no maxillary tenderness noted upon palpation. Neck: no masses or lymphadenopathy. Chest: CTA bilaterally with equal breath sounds; good air exchange throughout. No wheezing, rhonchi, or crackles; no retractions, tripoding, or nasal flaring noted. Heart: RRR, no murmur, rub, or gallop.. ASSESSMENT/PLAN: 1. Upper respiratory infection with cough and congestion - ICD9: 465.9, ICD10: J06.9 - BENZONATATE 100 MG CAPSULE - FLUTICASONE 50 MCG/ACTUATION NASAL SPRAY,SUSPENSION Encourage fluids, rest. Sudafed from behind the counter May start Claritin or Zyrtec OTC as directed- helps to dry up runny nose and post nasal drip. Tylenol and Motrin for pain and fever. If you have a fever rotate between the Tylenol and Motrin every 3 hours. Saline Nasil spray, Neti Pot, vaporizer, Vicks. Try Cepocol lozenges or Chloraseptic throat spray. Warm salt water gargles. Cough and deep breath- 10x/hr while awake. Call PCP if sx worsen or no better. If symptoms worsen, or new symptoms develop go to ER. If you have worsening of breathing or breathing changes- go to ER. If you have persistent fever unrelieved by Tylenol/Motrin- go to the ER. Follow up as needed. Barriers to learning: none. The patient verbalizes understanding and is in agreement with plan of care. Judie Cruz PA-C ALLERGIES ALLERGIES DATE TYPE / CODE NAME / CODE REACTION SEVERITY SOURCE 01/19/2018 Drug ibuprofen/[id number] Vomiting [place] [facility] All[facility]/[phone](RXNORM) [facility] [id number](SNOM Repository ED CT) 07/11/2012 DRUG IBUPROFEN GI UPSET [facility] INGREDI/[address] [place] 836896(SNOM Repository ED CT) ENCOUNTERS ENCOUNTERS ADMIT/DISCHARGE ACCOUNT ADMITTING ENCOUNTER LOCATION SOURCE NUMBER CLASS 01/19/2018 [id number] Ambulatory [facility] ing:LABSPEC Repository 01/19/2018/01/20/20 [id number] Ambulatory BMSBuilding:Gabriela Browne 19 [address] Repository 12/12/2017/12/14/19 [id number] Ambulatory [address] Repository 10/30/2017/11/02/19 [id number] Ambulatory [address] Repository 10/27/2017 [id number] Ambulatory [facility] ing:MRI Repository 05/10/2017/05/11/19 [id number] Ambulatory [address] Repository PAYERS PAYERS ENCOUNTER GUARANTOR PAYER SUBSCRIBER SOURCE 01/19/2018 ILSA Raya Primary ANDREW Shane Hollie HERSHBERGER6 Insurance:MEDICAL HERSHBERGERDOB: [facility] [id number] [place]: [place] [id number]: [id number] Date:[id number] [address]AG: 01/19/2018 Secondary NOT GIVENUNK Hollie Insurance:SELF PAY [facility] Number: Effective Repository Date:2018-01-19 01/19/2018 ILSA Raya Primary ANDREW Shane Hollie HERSHBERGER6 Insurance:MEDICAL HERSHBERGERDOB: [facility] [id number] Number: Repository [place] [id number]: [id number] Date:[id number], [place] [address]TL: 01/19/2018 Secondary NOT GIVENUNK Hollie Insurance:SELF PAY [facility] Number: Effective Repository Date:2018-01-19 10/27/2017 ILSA Raya Primary ANDREW Shane Hollie HERSHBERGER6 Insurance:MEDICAL HERSHBERGERDOB: [facility] [id number] Number: [place]ository [place] [id number]: [id number] Date:[id number] [address], [place] [address]DD: 10/27/2017 Secondary NOT GIVENUNK [place] Insurance:SELF PAY [facility]: Effective Repository Date:2017-10-20
== END ==
PROVIDERS: Referring Provider Obstetrics & Gynecology; Visit Provider Obstetrics & Gynecology
DX: Z12.4 Encounter for screening for malignant neoplasm of cervix (principal)
CPT/HCPCS: 87624; 88175; G0145

== ENCOUNTER → 2019-06-25 17:52 | Outpatient (CLI) | payer OTHER, SELFPAY ==
[2019-06-25 15:11] VITALS: BMI 32.9
[2019-06-25 20:16] LABS: Chlamydia Trachomatis by PCR Negative (Negative); Neisserai gonorrhoeae by PCR Negative (Negative); Probe Check PASS; Sample Adequacy Control PASS; Specimen Processing Control PASS
== END ==
PROVIDERS: Visit Provider Nurse Practitioner Women's Health
DX: A64 Unspecified sexually transmitted disease (principal); Z12.4 Encounter for screening for malignant neoplasm of cervix
CPT/HCPCS: 87491; 87591; 88175; G0145

== ENCOUNTER → 2020-06-26 16:30 | Outpatient (CLI) | payer OTHER, SELFPAY ==
[2020-06-26 08:44] VITALS: BMI 32.9
[2020-06-30 20:29] LABS: HPV Reflexed? NOT INDICATED
== END ==
PROVIDERS: Visit Provider Obstetrics & Gynecology
DX: Z12.4 Encounter for screening for malignant neoplasm of cervix (principal)
CPT/HCPCS: 88175; G0145

== ENCOUNTER → 2021-08-21 | Outpatient (CLI) | payer OTHER, SELFPAY ==
[2021-08-27 14:24] LABS: HPV Reflexed? NOT INDICATED
== END | disposition home or self-care (01) ==
LOC: LABSPEC 10:07
PROVIDERS: Visit Provider Obstetrics & Gynecology
DX: Z12.4 Encounter for screening for malignant neoplasm of cervix (principal)
CPT/HCPCS: 88175; G0145